=== PATIENT | male | born 1995 | race Caucasian/White ===

== ENCOUNTER 2019-10-21 07:53 | Emergency (ER) | payer BC ==
[2019-10-21 07:59] VITALS: BP 137/85; PULSE 68; TEMP 99; BMI 20.6
--- NOTE | 2019-10-21 08:22 | PDOC ---
History of Present Illness - General Chief Complaint: Pain, Acute Stated Complaint: left abdominal pain Time Seen by Provider: 10/21/19 08:00 History Source: Patient Exam Limitations: No Limitations - History of Present Illness Initial Comments: 10/21/19 08:17 21YOM without significant PMH who p/w left inguinal abdominal pain. States that it has been present with associated constipation over the past 2 weeks but gradually became worse early this morning while he was resting. States he has not been eating as much lately but has not had any unintentional weight loss or gain, no swollen lymph nodes, no night sweats, no f/c/n/v/d, no testicular pain or swelling, no scrotal skin changes, no known lumps/bumps that could be a hernia. He thought at one point his stool had a reddish tinge but it was after he ate a large amount of watermelon. He has not taken medications for the discomfort or constipation. The patient states he just established care with Dr. Anderson about a week ago, after not seeing any doctor for about 5 years, and had labs drawn at that time, small elevation in WBC but otherwise normal. States he also had a small cyst on his left buttock removed, no complications. Past History - Medical History Allergies/Adverse Reactions: Allergies Allergy/AdvReac Type Severity Reaction Status Date / Time No Known Allergies Allergy Verified 10/21/19 07:59 Home Medications: Ambulatory Orders NK [No Known Home Medication] 10/21/19 COPD: No - Immunization History Immunization Up to Date: Yes - Psycho-Social/Smoking History Smoking History: Never smoked Have you smoked in the past 12 months: No Information on smoking cessation initiated: No - Substance Abuse Hx (Audit-C & DAST Scrn) How often the patient has a drink containing alcohol: Never Score: In Men: 4 or > Positive; In Women: 3 or > Positive: 0 Screen Result (Pos requires Nsg. Audit-10AR): Negative In the last yr the pt used illegal drug/Rx for NonMed reason: No Score: Yes response is considered Positive: 0 Screen Result (Positive result requires Nsg. DAST-10): Negative Review of Systems - Review of Systems Able to Perform ROS?: Yes Comments:: 10/21/19 08:22 GEN: no fever, chills, malaise, or generalized weakness HEENT: no ear pain, congestion, sore throat, vision change, or eye pain CV: no chest pain, palpitations, lightheadedness, syncope, or edema RESP: no SOB, wheezing, or cough GI: abdominal pain, constipation, decreased PO intake, no nausea, vomiting, diarrhea, or black/bloody stool : no dysuria, hematuria, discharge, or testicular pain/swelling or scrotal skin changes MSK: no muscle weakness or pain, no joint swelling or pain NEURO: no headache, vertigo, numbness, tingling, or focal weakness PSYCH: no SI, HI, or behavior change SKIN: no jaundice, rash, lesions, or unexplained bruises ROS otherwise negative except as noted in HPI *Physical Exam - Vital Signs Last Vital Signs Temp Pulse Resp BP Pulse Ox 99 F 68 18 137/85 99 10/21/19 07:55 10/21/19 07:55 10/21/19 07:55 10/21/19 07:55 10/21/19 07:55 - Physical Exam 10/21/19 08:23 GENERAL: nontoxic-appearing, A/Ox4, pleasant, anxious, thin, no distress, answ ers questions appropriately, mother initially at bedside HEENT: PERRLA, EOMI, moist mucous membranes NECK/BACK: no thyromegaly or palpable nodules, no midline ttp, no spinal step- off or deformity, no hematoma, full ROM, neck supple CARDIOVASCULAR: regular rate/rhythm, no MGR, strong peripheral pulses, capillary refill <2 seconds, extremities wwp, no edema LUNGS/RESPIRATORY: no respiratory distress, CTAB GI/ABDOMEN: symmetric [id number], normoactive BS, soft, no ttp, no midline pulsatile masses : no CVA tenderness, no inguinal/scrotal hernias, no scrotal skin changes, normal testicular lay, cremasteric reflexes intact bilaterally, no testicular tenderness to palpation or swelling MSK/EXTREMITIES: no muscle atrophy, no acute deformity SKIN: small soft tissue mass right upper chest wall just inferior medial clavicle at RUSB, skin is otherwise warm and dry, no pallor, no jaundice, no rash, no pathologic-appearing bruising, no skin breakdown, no cuts, no lesions NEUROLOGICAL: GCS 15, CN II-XII grossly intact, 5/5 strength proximally and distally, no facial droop Medical Decision Making - Medical Decision Making 10/21/19 08:26 21YOM without PMH p/w left inguinal discomfort and constipation x2 weeks. Initial Vital Signs Temp Pulse Resp BP Pulse Ox 99 F 68 18 137/85 99 10/21/19 07:55 10/21/19 07:55 10/21/19 07:55 10/21/19 07:55 10/21/19 07:55 Most likely muscle strain/sprain, constipation/gas, UTI, or small inguinal hernia not detectable on clinical exam. Very unlikely torsion, abscess, cellulitis, or any other testicular or scrotal pathology as the patient's exam is normal. Very unlikely renal stone as this has been persistent x2 weeks and patient has no CVA tenderness or dysuria or hematuria. The patient is in no apparent discomfort here in the ED and exam is benign, patient does appear anxious. A portion of the patient's interview and exam was conducted with his mother out of the room. Will test UA and ensure good follow-up with Dr. Anderson and give referral information for GI specialist with whom the patient is instructed to consult if continued symptoms. This Pt has gotten significant relief of symptoms while in the ED. On last reassessment, vitals are wnl, pain is reasonably controlled, and exam is benign. Workup is not concerning for emergency-level pathology at this time. This Pt is appropriate for discharge with close outPt follow up. They are comfortable with this plan and will follow up with PCP in 1-3 days. Referral information given for GI specialist commissioning engineer for follow-up. Specific return precautions are discussed and they will come back to the ER if necessary. Discharge - Discharge Information Problems reviewed: Yes Clinical Impression/Diagnosis: Left inguinal pain Condition: Stable Disposition: HOME - Admission No - Follow up/Referral Referrals: Montana Anderson MD [Staff Physician] - Gary Jacinto MD [Staff Physician] - - Patient Discharge Instructions Additional Instructions: You were seen in the ER for left groin pain and constipation. We did a thorough history and physical exam and checked your urine, and there were no abnormalities at this time. Please make an appointment to follow up with Dr. Anderson early next week. If you have continued symptoms, call Dr. Jacinto for an appointment (GI specialist, whose contact information is in this packet). Take Motrin 600 mg if needed for discomfort, following the instructions on the bottle. Be sure to eat a healthy, balanced diet with plenty of fruit and vegetables, and be sure that you are eating enough. Also drink plenty of fluids. Come back to the ER for any new or worsening symptoms, especially testicular pain or swelling, scrotal skin changes, burning pain on urination, or worsening pain. - Post Discharge Activity
[2019-10-21 08:38] LABS: URINE MUCUS 2+
== END 2019-10-21 08:46 | disposition home or self-care (01) ==
LOC: FER 07:53 → EDBD 07:53 → FER 08:46
DX: R10.30 Lower abdominal pain, unspecified (principal)
CPT/HCPCS: 81003; 81015; 99283-25

== ENCOUNTER 2019-10-23 21:14 | Emergency (ER) | payer BC ==
[2019-10-23 21:34] VITALS: BP 130/82; PULSE 108; TEMP 98.7; BMI 19.9
[2019-10-23] MEDS ORDERED: ONDANSETRON 4 MG/2 ML VIAL IVPUSH ONE (21:41)
[2019-10-23] MEDS ORDERED: SODIUM CHLORIDE 1,000 ML IV STA ×2 (21:41→23:21)
[2019-10-23] MEDS ORDERED: ONDANSETRON 4 MG/2 ML VIAL ONE (21:44)
[2019-10-23 22:04] LABS: EOS % 0.2 % (0-4.5); RDW 12.1 % (11.9-15.9)
[2019-10-23 22:07] LABS: ALBUMIN 5.5 g/dl (3.4-5.0); BASO % 1.1 % (0-2.0); BILIRUBIN,TOTAL 1.6 mg/dl (0.2-1); CALCIUM 9.8 mg/dl (8.5-10); CREATININE 1.4 mg/dl (0.55-1.3); HEMATOCRIT 47.9 % (35.4-49); HEMOGLOBIN 16.4 GM/dl (11.7-16.9); LYMPH % 8.5 % (8-40); MCH 28.7 pg (25.7-33.7); MCHC 34.3 g/dl (32.0-35.9); MEAN CELL VOLUME 83.6 fl (80-96); MEAN PLT VOLUME 10.3 fl (7.5-11.1); MONO % 5.6 % (3.8-10.2); NEUT % 84.6 % (42.8-82.8); PLATELET COUNT 232 K/MM3 (134-434); POTASSIUM 3.7 mmol/L (3.5-5.1); RBC 5.73 M/mm3 (4.00-5.60); TOT PROT 8.5 g/dl (6.4-8.2); WHITE BLOOD COUNT 18.3 K/mm3 (4.0-10.8)
[2019-10-23 22:18] LABS: EPITHELIAL CELLS FEW /hpf; URINE HYALINE CAST 0-1 /lpf; URINE MUCUS 2+
--- NOTE | 2019-10-23 23:29 | PDOC ---
History of Present Illness - General Chief Complaint: Nausea/Vomiting Stated Complaint: NAUSEA, VOMITING, ABD PAIN Time Seen by Provider: 10/23/19 21:24 - History of Present Illness Initial Comments: This 24-year-old man, otherwise healthy, presents with a 1 day history of nausea and vomiting and intermittent abdominal pain. Patient describes vomiting partially digested food and bilious material. No history of blood or coffee ground emesis. He has not had fever/chills or diarrhea. He had been seen in the ER here 2 days ago with left groin pain which has resolved. The pain that he has experienced today was left upper quadrant and periumbilical but resolved prior to presentation in the emergency room. He recently saw Dr. Anderson for the first time. At that time, he had a skin abscess drained and blood work performe d (reportedly normal). He states he was given a prescription for antibiotics for the skin abscess which caused him to become constipated but this has resolved. No daily medications No known allergies Non-smoker; no daily alcohol or other recreational drug use Past History - Medical History Allergies/Adverse Reactions: Allergies Allergy/AdvReac Type Severity Reaction Status Date / Time No Known Allergies Allergy Verified 10/21/19 07:59 Home Medications: Ambulatory Orders Ondansetron [Zofran *Odt*] 4 mg SL BID PRN #10 od.tablet 10/23/19 COPD: No - Immunization History Immunization Up to Date: Yes - Psycho-Social/Smoking History Smoking History: Never smoked Have you smoked in the past 12 months: No - Substance Abuse Hx (Audit-C & DAST Scrn) How often the patient has a drink containing alcohol: Never Score: In Men: 4 or > Positive; In Women: 3 or > Positive: 0 Screen Result (Pos requires Nsg. Audit-10AR): Negative In the last yr the pt used illegal drug/Rx for NonMed reason: No Score: Yes response is considered Positive: 0 Screen Result (Positive result requires Nsg. DAST-10): Negative Review of Systems - Review of Systems Able to Perform ROS?: Yes Comments:: 12 point review of systems is negative except for what is noted in the history of present illness *Physical Exam - Vital Signs Last Vital Signs Temp Pulse Resp BP Pulse Ox 98.7 F 108 H 16 130/82 100 10/23/19 21:16 10/23/19 21:16 10/23/19 21:16 10/23/19 21:16 10/23/19 21:16 - Physical Exam GENERAL: Adult male, alert and oriented x3, in no acute distress HEAD: Normal with no signs of trauma. EYES: PERRLA, EOMI, sclera anicteric, conjunctiva clear. ENT: Ears normal, nares patent, oropharynx clear without exudates. Dry mucous membranes. NECK: Normal range of motion, supple without lymphadenopathy, JVD, or masses. LUNGS: Breath sounds equal, clear to auscultation bilaterally. No wheezes, and no crackles. HEART:Regular rate and rhythm, normal S1 and S2 without murmur, rub or gallop. ABDOMEN:.normal bowel sounds No guarding,tenderness or rebound.No masses No distention. EXTREMITIES: Normal range of motion, no edema. No clubbing or cyanosis. No erythema, or tenderness. NEUROLOGICAL: Cranial nerves II through XII grossly intact. Normal speech. No focal neurological deficits. MUSCULOSKELETAL: Back non-tender to palpation, no CVA tenderness SKIN: Warm, Dry, normal turgor, no rashes or lesions noted. ED Treatment Course - LABORATORY CBC & Chemistry Diagram: 10/23/19 21:45 10/23/19 21:45 - ADDITIONAL ORDERS Additional order review: Laboratory Results 10/23/19 10/23/19 21:50 21:45 Sodium 136 Potassium 3.7 Chloride 98 Carbon Dioxide 19 L Anion Gap 19 H BUN 18.0 Creatinine 1.4 H Est GFR (CKD-EPI)AfAm 80.36 Est GFR (CKD-EPI)NonAf 69.34 Random Glucose 103 Calcium 9.8 Total Bilirubin 1.6 H AST 28 ALT 19 Alkaline Phosphatase 82 Total Protein 8.5 H Albumin 5.5 H Urine Color Yellow Urine Appearance Clear Urine pH 5.5 Urine Protein 1+ H Urine Glucose (UA) Negative Urine Ketones 3+ H Urine Blood Trace-intact Urine Nitrite Negative Urine Bilirubin 1+ H Urine Urobilinogen 0.2 Ur Leukocyte Esterase Negative Urine RBC 2-5 Urine WBC 2-5 Ur Transition Epith Cell Few Hyaline Casts 0-1 Urine Mucus 2+ 10/23/19 21:45 RBC 5.73 H MCV 83.6 MCHC 34.3 RDW 12.1 MPV 10.3 Neutrophils % 84.6 H Lymphocytes % 8.5 Monocytes % 5.6 Eosinophils % 0.2 Basophils % 1.1 - Medications Given in the ED: ED Medications Discontinued Medications Generic Name Dose Route Start Last Admin Trade Name Milvia PRN Reason Stop Dose Admin Sodium Chloride 1,000 mls @ 1,000 mls/hr 10/23/19 21:41 10/23/19 21:46 Normal Saline - IV 10/23/19 22:40 1,000 mls/hr ASDIR STA Administration Ondansetron HCl 4 mg 10/23/19 21:41 10/23/19 21:46 Zofran Injection IVPUSH 10/23/19 21:42 4 mg ONCE ONE Administration ED Progress Note - Progress Note Progress Note: This otherwise healthy 24-year-old man presents with nausea/vomiting and intermittent abdominal discomfort for the last 24 hours. No fever or diarrhea reported. No blood or coffee-ground emesis noted. Exam as noted with patient having dry mucous membranes and nontender abdomen. CBC, chemistry profile, urinalysis performed and patient received 2 L of normal saline with 4 mg of Zofran IV Laboratory evaluation notable for white blood cell count 18,000 (remainder the CBC is unremarkable), evidence of significant ketosis with 4+ ketones in urinalysis and anion gap on his chemistry profile. No significant electrolyte abnormality. The patient appears to have prerenal azotemia with BUN of 18 and creatinine 1.4 Patient felt significantly better after IV hydration and Zofran 4 mg. Reexam ination shows no development of tenderness, distention or guarding. Patient will be discharged with recommendations to maintain clear liquid diet and advancement to solid foods slowly. Zofran ODT 4 mg up to twice a day as needed for nausea/vomiting (#10) sent to pharmacy. He should return to the emergency room if he has persistent severe pain, persistent vomiting or develops fever. He should follow-up with Dr. Anderson within the next 5 to 7 days, especially if he has persistent intermittent abdominal pain or vomiting Discharge - Discharge Information Problems reviewed: Yes Clinical Impression/Diagnosis: Gastroenteritis Condition: Improved Disposition: HOME - Additional Discharge Information Prescriptions: Ondansetron [Zofran *Odt*] 4 mg SL BID PRN #10 od.tablet PRN Reason: Nausea - Follow up/Referral Referrals: Montana Anderson MD [Primary Care Provider] - - Patient Discharge Instructions Patient Printed Discharge Instructions: DI for Vomiting -- Adult Additional Instructions: Clear liquids, advance diet cautiously Zofran ODT 4 mg up to twice a day as needed for nausea/vomiting Return to ER if you have persistent severe vomiting, persistent pain or develop fever Call Dr. Anderson and discuss today's ER visit; follow-up as arranged - Post Discharge Activity
== END 2019-10-24 00:07 | disposition home or self-care (01) ==
LOC: FER 21:14
PROC: 3E033GC Introduction of Other Therapeutic Substance into Peripheral Vein, Percutaneous Approach (ICD-10-PCS; principal; 2019-10-23)
PROC: 3E0337Z Introduction of Electrolytic and Water Balance Substance into Peripheral Vein, Percutaneous Approach (ICD-10-PCS; 2019-10-23)
DX: K52.9 Noninfective gastroenteritis and colitis, unspecified (principal)
CPT/HCPCS: 36415; 80053; 81003; 81015; 85025; 99284-25

== ENCOUNTER 2020-07-20 15:54 | Emergency (ER) | payer BC, OTHER ==
[2020-07-20 16:12] VITALS: BP 148/91; PULSE 103; TEMP 98.5; BMI 19.1
[2020-07-20] MEDS ORDERED: IBUPROFEN 600 MG TABLET (FP) PO ONE ×2 (16:30→16:37)
== END 2020-07-20 18:14 | disposition home or self-care (01) ==
LOC: FER 15:54
DX: R59.9 Enlarged lymph nodes, unspecified (principal); L73.9 Follicular disorder, unspecified
CPT/HCPCS: 76536-TC; 99284-25

== ENCOUNTER 2021-06-25 00:07 | Emergency (ER) | payer OTHER ==
[2021-06-25 00:17] VITALS: BP 139/75; PULSE 69; TEMP 98; BMI 20.3
== END 2021-06-25 00:31 | disposition home or self-care (01) ==
LOC: FER 00:07
DX: T23.101A Burn of first degree of right hand, unspecified site, initial encounter (principal); X19.XXXA Contact with other heat and hot substances, initial encounter
CPT/HCPCS: 99282-25